=== PATIENT | male | born 1970 | race African-American/Black ===

== ENCOUNTER 2018-09-20 02:32 | Emergency (ER) | payer MEDICAID, OTHER ==
[~2018-09-20] VITALS: Ht 167.6 cm; Wt 79.0 kg
[~2018-09-20 02:32] MED LIST: COR25 PO; FURO-151 PO; LISI2.5T47 PO
[2018-09-20] MEDS ORDERED: HYDROCODONE/ACETAMINOPHEN 10/325MG TABLET PO ONE (06:30)
[2018-09-20 07:04] VITALS: BP 143/96
== END 2018-09-20 07:08 | disposition home or self-care (01) ==
LOC: ER 02:32
DX: K08.89 Other specified disorders of teeth and supporting structures (principal); I11.0 Hypertensive heart disease with heart failure; I50.9 Heart failure, unspecified; E78.00 Pure hypercholesterolemia, unspecified; Z88.0 Allergy status to penicillin; Z88.5 Allergy status to narcotic agent; Z79.899 Other long term (current) drug therapy
CPT/HCPCS: 99283

== ENCOUNTER 2022-10-02 20:52 | Emergency (ER) | payer OTHER ==
[~2022-10-02] VITALS: Ht 167.6 cm; Wt 90.5 kg
[2022-10-02] MEDS ORDERED: IBUP-2029 MT (23:24)
[2022-10-02] MEDS ORDERED: CLIN-194 MT (23:24)
[2022-10-02] MEDS ORDERED: CLINDAMYCIN HCL 150MG CAPSULE PO ONE (23:30)
[2022-10-02] MEDS ORDERED: CLINDAMYCIN HCL 150MG CAPSULE PO NR (23:45)
[2022-10-03 00:16] VITALS: BP 145/91
== END 2022-10-03 00:18 | disposition home or self-care (01) ==
LOC: ER 20:52
DX: K08.89 Other specified disorders of teeth and supporting structures (principal); K04.7 Periapical abscess without sinus; I10 Essential (primary) hypertension; Z79.899 Other long term (current) drug therapy; Z88.0 Allergy status to penicillin
CPT/HCPCS: 99283

== ENCOUNTER 2022-10-08 19:44 | Emergency (ER) | payer OTHER ==
[~2022-10-08] VITALS: Ht 167.6 cm; Wt 88.0 kg
[~2022-10-08 19:44] MED LIST changes: +CLIN-194 MT; +IBUP-2029 MT
[2022-10-08 20:02] VITALS: BP 158/101
[2022-10-08] MEDS ORDERED: HYDR-4001 MT (21:48)
== END 2022-10-08 22:00 | disposition home or self-care (01) ==
LOC: ER 19:44
DX: K04.7 Periapical abscess without sinus (principal); I11.0 Hypertensive heart disease with heart failure; I50.9 Heart failure, unspecified
CPT/HCPCS: 99283

== ENCOUNTER 2024-02-13 13:47 | Emergency (ER) | payer OTHER ==
[~2024-02-13] VITALS: Ht 162.6 cm; Wt 105.0 kg
[~2024-02-13 13:47] MED LIST changes: +HYDR-4001 MT
[2024-02-13 13:58] VITALS: BP 158/91; O2SAT 99
[2024-02-13] MEDS ORDERED: NAPR-681 PO (16:52)
[2024-02-13 17:00] VITALS: PULSE 95; RESP 18; TEMP 36.94740; O2SAT 98
== END 2024-02-13 17:36 | disposition home or self-care (01) ==
LOC: ER 13:47
DX: S56.411A Strain of extensor muscle, fascia and tendon of right index finger at forearm level, initial encounter (principal); Z88.0 Allergy status to penicillin; Z88.5 Allergy status to narcotic agent; Z79.899 Other long term (current) drug therapy; W18.39XA Other fall on same level, initial encounter; Y93.89 Activity, other specified; Y92.89 Other specified places as the place of occurrence of the external cause; Y99.8 Other external cause status
CPT/HCPCS: 73140; 99283

== ENCOUNTER 2024-02-28 17:12 | Emergency (ER) | payer OTHER ==
[~2024-02-28] VITALS: Ht 165.1 cm; Wt 90.7 kg
[~2024-02-28 17:12] MED LIST changes: +NAPR-681 PO
[2024-02-28 17:24] VITALS: O2SAT 99
[2024-02-28 18:26] LABS: BASOPHILS % 0.4 % (0.0-2.0); EOSINOPHILS % 2.4 % (0.0-5.0); HEMATOCRIT. 39.1 % (42.0-52.0); HEMOGLOBIN. 12.9 g/dL (14.0-18.0); MEAN CORPUSCULAR HEMOGLOBIN 26.5 pg (28.0-32.0); MEAN CORPUSCULAR VOLUME 80.3 fL (80.0-94.0); MEAN PLATELET VOLUME 8.4 fl (7.4-10.4); NEUTROPHILS % 64.2 % (40.0-76.0); PLATELET 222 x1000/uL (130-400); RED BLOOD CELL COUNT 4.88 mill/uL (4.7-6.1); RED CELL DISTRIBUTION WIDTH 13.7 % (11.6-14.6); WHITE BLOOD COUNT 8.3 x1000/uL (4.5-11.0)
[2024-02-28 18:30] LABS: CHLORIDE 99 mEq/L (98-107); SODIUM 140 mEq/L (136-145)
[2024-02-28 18:31] LABS: CARBON DIOXIDE 35 mEq/L (21-32)
[2024-02-28 18:36] LABS: CREATININE 1.4 mg/dL (0.6-1.3); GLUCOSE 209 mg/dL (70-105); UREA NITROGEN BLOOD 13 mg/dL (9-23)
[2024-02-28] MEDS ORDERED: POTASSIUM CHLORIDE 20MEQ TABLET SR PO ONE (19:00)
[2024-02-28] MEDS: POTASSIUM CHLORIDE 20MEQ TABLET SR PO NR (21:19)
[2024-02-28 21:22] VITALS: BP 155/97; PULSE 83; RESP 17; TEMP 36.44736; O2SAT 99
== END 2024-02-28 21:24 | disposition home or self-care (01) ==
LOC: ER 17:12 → EDBEDREQ 17:39 → ER 21:24
DX: E87.6 Hypokalemia (principal); I11.0 Hypertensive heart disease with heart failure; I50.9 Heart failure, unspecified; Z79.899 Other long term (current) drug therapy; Z88.0 Allergy status to penicillin; Z88.5 Allergy status to narcotic agent
CPT/HCPCS: 36415; 80048; 85025; 93005; 99284